=== PATIENT | female | born 1960 | race Caucasian/White ===

== ENCOUNTER → 2018-09-09 | Outpatient (CLI) | payer OTHER ==
[2018-09-11 15:06] LABS: HPV 16 Negative (Negative); HPV 18 Negative (Negative); HPV OTHER HR TYPES Negative (Negative)
== END | disposition home or self-care (01) ==
LOC: LAB 17:52 → LAB SHORT 17:52
PROVIDERS: Nurse Practitioner Women's Health
DX: Z12.4 Encounter for screening for malignant neoplasm of cervix (principal)
CPT/HCPCS: 87624; G0123

== ENCOUNTER 2023-03-27 12:39 | Emergency (ER) | payer OTHER ==
[~2023-03-27] VITALS: Ht 172.7 cm; Wt 122.5 kg
[2023-03-27 12:57] VITALS: BP 190/90
[2023-03-27] MEDS ORDERED: ZOLOFT10013 PO (14:16)
[2023-03-27] MEDS ORDERED: EUTHYROX137 MC1 PO (14:16)
[2023-03-27] MEDS ORDERED: METFORMIN HCL500 M2 PO (14:16)
== END 2023-03-27 15:07 | disposition home or self-care (01) ==
LOC: ER 12:39
DX: S83.92XA Sprain of unspecified site of left knee, initial encounter (principal); S93.402A Sprain of unspecified ligament of left ankle, initial encounter; W10.8XXA Fall (on) (from) other stairs and steps, initial encounter; Z79.899 Other long term (current) drug therapy
CPT/HCPCS: 73562-LT; 73610; 99283-25

== ENCOUNTER 2023-04-15 11:50 | Day surgery (SDC) | payer OTHER ==
[~2023-04-15] VITALS: Ht 175.3 cm; Wt 130.3 kg
[~2023-04-15 11:50] MED LIST: EUTHYROX137 MC1 PO; METFORMIN HCL500 M2 PO; ZOLOFT10013 PO
[2023-04-15] MEDS ORDERED: IBUP100S (12:11)
[2023-04-15] MEDS ORDERED: Simvastatin20 MG (12:19)
[2023-04-15 15:06] VITALS: BP 139/82
--- NOTE | 2023-04-15 15:07 | NUR ---
04/15/23 1507 Aretha Hebert IV, DC'Fern, CATHETER WNL
== END 2023-04-15 14:54 | disposition home or self-care (01) ==
LOC: ORSCSDS 11:50
PROVIDERS: Surgery
PROC: 0DBH8ZX Excision of Cecum, Via Natural or Artificial Opening Endoscopic, Diagnostic (ICD-10-PCS; principal; 2023-04-15 14:00)
PROC: 0DBM8ZX Excision of Descending Colon, Via Natural or Artificial Opening Endoscopic, Diagnostic (ICD-10-PCS; principal; 2023-04-15 14:00)
PROC: 0DBL8ZX Excision of Transverse Colon, Via Natural or Artificial Opening Endoscopic, Diagnostic (ICD-10-PCS; principal; 2023-04-15 14:00)
PROC: 0DBN8ZX Excision of Sigmoid Colon, Via Natural or Artificial Opening Endoscopic, Diagnostic (ICD-10-PCS; principal; 2023-04-15 14:00)
PROC: 0DBK8ZX Excision of Ascending Colon, Via Natural or Artificial Opening Endoscopic, Diagnostic (ICD-10-PCS; principal; 2023-04-15 14:00)
PROC: 0DBP8ZX Excision of Rectum, Via Natural or Artificial Opening Endoscopic, Diagnostic (ICD-10-PCS; principal; 2023-04-15 14:00)
DX: Z12.11 Encounter for screening for malignant neoplasm of colon (principal); D12.0 Benign neoplasm of cecum; D12.2 Benign neoplasm of ascending colon; D12.3 Benign neoplasm of transverse colon; D12.4 Benign neoplasm of descending colon; D12.5 Benign neoplasm of sigmoid colon; D12.8 Benign neoplasm of rectum; D12.1 Benign neoplasm of appendix; K62.1 Rectal polyp; E11.9 Type 2 diabetes mellitus without complications; E03.9 Hypothyroidism, unspecified; E78.5 Hyperlipidemia, unspecified; Z79.84 Long term (current) use of oral hypoglycemic drugs; Z79.899 Other long term (current) drug therapy; E66.01 Morbid (severe) obesity due to excess calories; Z68.41 Body mass index [BMI] 40.0-44.9, adult
CPT/HCPCS: 82947; 88305; J2704; J7120